=== PATIENT | male | born 1945 | race Hispanic/Latino ===

== ENCOUNTER 2016-10-16 10:53 | Emergency (ER) | payer MEDICARE, OTHER ==
[~2016-10-16] VITALS: Ht 162.6 cm; Wt 104.5 kg
[~2016-10-16 10:53] MED LIST: CLIN60LO2 TP; CLOP75TA3 PO; CYCL5TAB PO; FLUO60SO3 TOPICAL; HYDR-4003 PO; KETO120S3 TP; LISI10TA PO
[2016-10-16 10:56] VITALS: BP 153/80; PULSE 75; RESP 20; O2SAT 98
--- NOTE | 2016-10-16 11:13 | ED.REPORT ---
HPI-General Illness Date of Service Oct 16, 2016 ED Provider: Dr. Chaves 71 year old male with a history of HTN and peripheral artery disease presents to the ED due to worsening redness and itching to his face for the last 1.5 hours. He refilled a prescription for Lisinopril yesterday. He also reports mild throat "tightness" and lip/tongue swelling. Pt denies SOB and dysphagia. He denies any recent medication changes and has not eaten this morning. Diesel Motor Mechanic: Nova Nursing Notes Stated Complaint: ALLERGIC REACTION Chief Complaint: Allergic Reaction Nursing Notes Reviewed: Yes Allergies: Uncoded Allergies: BANDAIDS (Allergy, Mild, RASH, 05/20/16) Scheduled Clindamycin Phosphate (Clindamycin Phosphate Topical) 60 Ml Lotion 1 APPLIC TP DAILY Clopidogrel Bisulfate (Plavix) 75 Mg Tablet 75 MG PO DAILY Lisinopril (Lisinopril) 10 Mg Tablet 10 MG PO DAILY Metoprolol Succinate ER (Metoprolol Succinate ER) 25 Mg Tab.er.24h 25 MG PO DAILY Scheduled PRN Cyclobenzaprine (Cyclobenzaprine) 5 Mg Tablet 5 MG PO TID PRN PRN Spasm Hydrocodone-Acetaminophen 5-325 mg (Hydrocodone-Acetaminophen 5-325 mg) 1 Each Tablet 1 TABLET PO Q4H PRN PRN For Pain Miscellaneous Medications Fluocinonide 0.05% Solution (Fluocinonide 0.05% Solution) 60 Ml Solution 1 APPLIC TOPICAL Ketoconazole (Ketoconazole) 120 Ml Shampoo 120 ML TP General Time Seen by MD: 11:12 Chief Complaint Allergic reaction Hx Obtained From: Patient Arrived By: Walk-in Sudden in Onset?: Yes Onset Occurred: 1 - 4 hours ago Symptom Duration: Since onset Location: : Arm left: Arm right: Back: Chest: Face Quality: Itching Severity: Current: Mild Associated with: Denies: Shortness of breath, Vomiting Pertinent Negative: Relieved by nothing Past Medical History Past Medical History PAST MEDICAL HISTORY: Significant for hypertension, remote history hepatitis, TIA. Elevated cholesterol. Chronic back and neck pain. Past Surgical History PAST SURGICAL HISTORY: Includes bilateral inguinal hernias, appendectomy, cholecystectomy, sinus surgery and the left knee scope. Smoking History Former Smoker Social History Alcohol Use: Denies alcohol use Drug Use: Denies drug use Review of Systems Full Review of Systems Constitutional: Denies: Chills, Fever Ears / Nose / Throat: Reports: Tongue swelling (lip swelling) Respiratory: Denies: Non-productive cough, Shortness of breath Cardiovascular: Denies: Chest pain, Palpitations GI: Denies: Abdominal pain, Dysphagia, Nausea, Vomiting Skin: Reports Itching, Reports Rash, Reports Swelling Allergy / Immune: Reports: Allergic reaction, Itching Neurologic: Denies: Change LOC, Headache Complete sys rev & neg: except as marked. Physical Exam Vital Signs Vital Signs Date Time Temp Pulse Resp B/P Pulse Ox O2 Delivery O2 Flow Rate FiO2 10/16/16 14:29 62 18 123/54 98 Room Air 10/16/16 13:38 66 16 124/54 97 Room Air 10/16/16 12:30 68 16 138/63 97 Room Air 10/16/16 11:23 36.3 68 133/82 95 Room Air 10/16/16 10:56 36.8 75 20 153/80 98 Room Air Initial VS: Reviewed General/Constitutional: Well-developed, Well-nourished Head / Eyes: Atraumatic, Normocephalic, PERRL ENT: Conjunctiva normal, No scleral icterus Neck: Full range of motion Abdomen / GI: Soft, Non-tender Extremities: Vascular intact, Neuro intact, No swelling, No tenderness Neurologic: Alert, Oriented, Nonfocal Psychiatric: Mood/affect normal, Behavior normal, Normal thought content ENT: Airway patent No tongue swelling. Minor amount of swelling to lower lip Respiratory / Chest: Breath sounds NL, Breath sounds = bilat, No respiratory distress, No rales, No rhonchi, No wheezing Cardiovascular: Heart rate NL, Regular rhythm, Heart sounds NL, Cap refill not delayed, Peripheral circulation NL Skin: Warm, Dry Erythema to upper chest, upper back, part of upper arms, neck and face. Erythema to bilat ears. Interpretation & Diagnostics Lab Results Interpretation Result Diagram: 10/16/16 1115 10/16/16 1115 Test 10/16/16 11:15 White Blood Count 7.9th/mm3 (3.8-10.1) Red Blood Count 5.11mil/mm3 (4.40-5.80) Hemoglobin 15.8g/dL (13.8-17.2) Hematocrit 46.5% (41.0-50.0) Mean Corpuscular Volume 91.0fL (81-100) Mean Corpuscular Hemoglobin 30.9pg (27.0-35.0) Mean Corpuscular Hemoglobin Concent 34.0% (32.0-37.0) Red Cell Distribution Width 13.9% (12.3-15.4) Platelet Count 260bil/L (150-400) Neutrophils (%) (Auto) 40.5% (40-74) Lymphocytes (%) (Auto) 43.2% (14-46) Monocytes (%) (Auto) 10.4% (4-12) Eosinophils (%) (Auto) 5.2% (0-5) Basophils (%) (Auto) 0.4% (0-3) Prothrombin Time 10.5sec (8.1-12.5) Prothromb Time International Ratio 0.98ratio Sodium Level 138mEq/L (134-144) Potassium Level 4.7mEq/L (3.5-5.2) Chloride Level 104mEq/L (97-108) Carbon Dioxide Level 22mmol/L (18-29) Blood Urea Nitrogen 19mg/dL (8-27) Creatinine 0.89mg/dL (0.76-1.27) Estimat Glomerular Filtration Rate 90mL/min (>59) Glucose Level 108mg/dL (60-99) Calcium Level 8.8mg/dL (8.5-10.1) Total Bilirubin 0.3mg/dL (0.0-1.2) Aspartate Amino Transf (AST/SGOT) 19U/L (0-50) Alanine Aminotransferase (ALT/SGPT) 16U/L (0-44) Alkaline Phosphatase 97U/L (25-160) Total Protein 7.3g/dL (6.4-8.4) Albumin 3.9g/dL (3.4-5.0) General Lab Results Interp 1: Labs reviewed Re-Eval/Medical Decision Med Decision/Clinical Course Called to [facility] pharmacy regarding his lisinopril prescription. He is on 10 mg he did strip picker a new prescription yesterday this reaction is after taking the first pill out of this new bottle. Pharmacist confirms no new backend python developer no change to the medicines this is the same physical pill he would have gotten with all previous prescriptions At this point my best guess at the cause for his acute reaction is in fact the lisinopril. We will ask him to stop this Time of Eval: 14:24 Re-Evaluation/Progress Note: The area of erythema has resolved. Lip swelling resolved. Discussed change in medication and plan for d/c and f/u. All questions addressed. Consultation : Referral / Consult Name: Vanesa Munoz MD Consulted With: Primary care physician Call Returned at: 11:30 Note: Returned call for Dr. Butt. Discussed medication changes. Counseled Regarding: Diagnosis, Lab results, Need for follow-up, When/why to return to ED Discharge & Departure Primary Impression: Allergic reaction caused by a drug Disposition: Home Discharge Condition All VS Reviewed: Yes Condition: Improved Additional Instructions: Stop taking your Lisinopril as I believe that this is what caused your reaction. I did call the pharmacy and they said the new prescription you got yesterday is the same backend python developer, same color and dose as you have had previously. I think it is best to not take any changes and want you to stop the lisinopril. I want to replace it with metoprolol 25mg daily, you can begin this tomorrow. A prescription has been electronically sent to [facility] for you. I have spoken with Dr Munoz, Dr Butt's partner to let her know my recommendations. Please schedule an apt next week with Dr Butt to make sure your blood pressure is OK and you are tolerating the medication. Return if you are getting worse. Good luck! Referrals: Karlie Butt MD (PCP) Scribe Attestation Portions of this note were transcribed by Rosaura Sadler. I, (Dr. Chaves) personally performed the history, physical exam and medical decision-making; I reviewed and confirmed the accuracy of the information in the transcribed note. Signed by: Rosaura Sadler. 10/16/2016, 1509 copies to: Karlie Butt MD; Ismael Bhatt MD, Shawna L MD Oct 16, 2016 11:13 Rosaura Sadler Oct 16, 2016 11:19
[2016-10-16 11:23] VITALS: BP 133/82; PULSE 68; O2SAT 95
[2016-10-16 11:29] LABS: BASOPHILS % (AUTO) 0.4 % (0-3); EOSINOPHILS % (AUTO) 5.2 % (0-5); MONOCYTES % (AUTO) 10.4 % (4-12); Mean Corpuscular Hemoglobin 30.9 pg (27.0-35.0); NEUTROPHILS % (AUTO) 40.5 % (40-74); Platelet Count 260 bil/L (150-400)
[2016-10-16 11:40] LABS: INR 0.98 ratio
[2016-10-16 12:30] VITALS: BP 138/63; PULSE 68; RESP 16; O2SAT 97
[2016-10-16] MEDS ORDERED: METO25TA99 PO (12:37)
[2016-10-16 13:38] VITALS: BP 124/54; PULSE 66; RESP 16; O2SAT 97
[2016-10-16 14:29] VITALS: BP 123/54; PULSE 62; RESP 18; O2SAT 98
[2016-10-17] MEDS ORDERED: PRE20 PO (17:40)
== END 2016-10-16 14:30 | disposition home or self-care (01) ==
LOC: SED 10:53
DX: L29.9 Pruritus, unspecified (principal); L53.9 Erythematous condition, unspecified; T46.4X5A Adverse effect of angiotensin-converting-enzyme inhibitors, initial encounter; X58.XXXA Exposure to other specified factors, initial encounter; Y92.9 Unspecified place or not applicable; Y93.9 Activity, unspecified; Y99.9 Unspecified external cause status; I10 Essential (primary) hypertension; E78.00 Pure hypercholesterolemia, unspecified; I73.9 Peripheral vascular disease, unspecified; Z86.73 Personal history of transient ischemic attack (TIA), and cerebral infarction without residual deficits; Z87.891 Personal history of nicotine dependence
CPT/HCPCS: 36415; 80053; 85025; 85610; 96374; 99284; J1200

== ENCOUNTER 2016-10-17 15:01 | Emergency (ER) | payer MEDICARE, OTHER ==
[~2016-10-17] VITALS: Ht 162.6 cm; Wt 104.5 kg
[~2016-10-17 15:01] MED LIST changes: +METO25TA99 PO
[2016-10-17 15:03] VITALS: BP 172/82; PULSE 76; RESP 16; O2SAT 98
--- NOTE | 2016-10-17 15:23 | ED.REPORT ---
HPI-Allergic Reaction Date of Service Oct 17, 2016 ED Provider: Odilon Torres MD Pt is a 71 y.o. male who presents to the ED with an allergic reaction c/o throat , neck, and mouth itchiness onset 1 hour prior to arrival. Pt states that he was seen in the ED yesterday for similar sx and was administered Benadryl, it was determined that his sx may be related to his Lisinopril. He returns today as his symptoms have reoccurred and he claims they have worsened.Pt reports associated rash to his neck and chest, 'raspy' voice, and sensation of tongue swelling. He denies SOB and dysphagia. Pt also denies any new medications and states that he has not taken anymore of his Lisinopril. Nursing Notes Stated Complaint: ALLERGIC REACTION Chief Complaint: Allergic Reaction Nursing Notes Reviewed: Yes Allergies: Uncoded Allergies: BANDAIDS (Allergy, Mild, RASH, 05/20/16) Scheduled Clindamycin Phosphate (Clindamycin Phosphate Topical) 60 Ml Lotion 1 APPLIC TP DAILY Clopidogrel Bisulfate (Plavix) 75 Mg Tablet 75 MG PO DAILY Lisinopril (Lisinopril) 10 Mg Tablet 10 MG PO DAILY Metoprolol Succinate ER (Metoprolol Succinate ER) 25 Mg Tab.er.24h 25 MG PO DAILY Prednisone (PredniSONE) 20 Mg Tablet 40 MG PO DAILY Scheduled PRN Cyclobenzaprine (Cyclobenzaprine) 5 Mg Tablet 5 MG PO TID PRN PRN Spasm Hydrocodone-Acetaminophen 5-325 mg (Hydrocodone-Acetaminophen 5-325 mg) 1 Each Tablet 1 TABLET PO Q4H PRN PRN For Pain Miscellaneous Medications Fluocinonide 0.05% Solution (Fluocinonide 0.05% Solution) 60 Ml Solution 1 APPLIC TOPICAL Ketoconazole (Ketoconazole) 120 Ml Shampoo 120 ML TP General Time Seen by MD: 15:14 Chief Complaint Allergic reaction Hx Obtained From: Patient Arrived By: Walk-in Onset Occurred: 1 - 4 hours ago Symptom Duration: Since onset Location: : Chest: Neck Quality: Itching Recent Healthcare: Recent doctor visit Similar Sx Previous: Yes Past Medical History Past Medical History PAST MEDICAL HISTORY: Significant for hypertension, remote history hepatitis, TIA. Elevated cholesterol. Chronic back and neck pain. Past Surgical History PAST SURGICAL HISTORY: Includes bilateral inguinal hernias, appendectomy, cholecystectomy, sinus surgery and the left knee scope. Smoking History Former Smoker Social History Alcohol Use: Denies alcohol use Drug Use: Denies drug use Ambulatory Status Independent Review of Systems Ears / Nose / Throat: Reports: Tongue swelling (sensation of) Skin: Reports Rash (Chest and neck) Allergy / Immune: Reports: Allergic reaction, Itching Complete sys rev & neg: except as marked. Physical Exam Initial Vital Signs Vital Signs (First) Date Time Temp Pulse Resp B/P Pulse Ox O2 Delivery O2 Flow Rate FiO2 10/17/16 15:03 36.6 76 16 172/82 98 Room Air Initial VS: Reviewed Head / Eyes: Atraumatic, Normocephalic Abdomen / GI: No distention Extremities: Vascular intact, Neuro intact Neurologic: Alert, Oriented, Nonfocal Psychiatric: Mood/affect normal, Behavior normal, Normal thought content General/Constitutional: Awake, Alert, No acute distress, Well appearing, Well developed, Well hydrated, Well nourished, Not toxic appearing Respiratory / Chest: Atraumatic, Breath sounds NL, Breath sounds = bilat, No respiratory distress, No rales, No rhonchi, No wheezing, No retractions, No stridor Cardiovascular: Heart rate NL, Regular rhythm, Heart sounds NL, No gallop, No murmurs, No rubs, Peripheral circulation NL Skin: Atraumatic, Warm, Dry, Intact Rash / Lesion Location: Positive: Chest (Anterior chest wall), Neck Rash / Lesion Pattern: Positive: Urticarial (Mild) ENT: Atraumatic, Airway patent, Pharynx NL, No pooling of secretions, No facial swelling Mouth: Positive: Tongue abnormal (Right side of tongue mildly edematous), Negative: Lip swelling present Interpretation & Diagnostics Lab Results Interpretation Test 10/17/16 15:30 Hold Purple Top Tube Received (Received) Hold Blue Top Tube Received (Received) Hold [place] Top Tube Received (Received) Re-Eval/Medical Decision Med Decision/Clinical Course In summary, the patient is a 71-year-old male seen here and evaluated in this emergency department yesterday complaining of possible allergic reaction with swelling of his tongue/lips and itching. This was thought possibly very mild angioedema and he is told to stop his KAMERON inhibitor and use Benadryl for itching. He presents back to the emergency department today complaining that he is developed worsening itching and that he has itching in his lips and swelling of the right side of his tongue. Upon arrival he is afebrile, hemogram stable and in no apparent distress. He has no apparent swelling of his lips. He has very subtle swelling of the right side of his tongue. He also has mild urticaria about his anterior chest. His airway is widely patent. The patient was treated here with IV fluids Benadryl Methylprednisolone Famotidine The presentation today is somewhat atypical. The swelling is extremely subtle and I am unconvinced angioedema though this remains my primary concern. This may also reflect a mild/early anaphylactic type reaction. Therefore the patient was aggressively treated with the above medications and reported resolution of his symptoms. Repeat examination revealed no progressive swelling of his face lips or tongue. The patient did not desire any further stay in the emergency department or admission for observation. He preferred to go home and return should his symptoms worsen or change. I explained to him the risk of possible evolving angioedema and the importance of returning immediately if he develops any recurrent or progressive symptoms. He will continue to hold his lisinopril and follow up with his primary care physician. Follow-up and return precautions were reviewed in detail and he was discharged in stable condition. Of note, I was informed by the patient's nurse that he actually administered 0.1 mg the patient's 0.3 mg dose of intramuscular epinephrine via the intravenous route. The patient had transient tachycardia related to this though no other adverse reactions he is monitored here for over 2 hours in the emergency department during which time he remained stable without any progressive symptoms. Source of Hx: Old records Re-Evaluation/Progress : Time of Eval: 17:50 Re-Evaluation/Progress Note: Pt rechecked. Pt states he is feeling improved. Discussed plan to discharge, pt understands and agrees with plan. Counseled Regarding: Diagnosis, Lab results, Need for follow-up, When/why to return to ED Discharge & Departure Primary Impression: Allergic reaction caused by a drug Additional Impressions: Angioedema Encounter type: initial encounter Qualified Code: T78.3XXA - Angioneurotic edema, initial encounter Urticaria Itching Disposition: Home Discharge Condition All VS Reviewed: Yes Condition: Stable Additional Instructions: Thank you for seeking care at emergency room. It is difficult for us to make definitive diagnoses in the ED but we believe that you are experiencing an allergic reaction or extremely mild angioedema. Our primary goal today in the ED was to evaluate you for any life-threatening conditions. Your evaluation was reassuring. That being said angioedema can progress to become life-threatening and if you develop any worsening swelling or failure of symptoms to continue improving you should come back to the emergency room. You will be discharged with a prescription for 4 days of prednisone, please take this in addition to Benadryl. You should follow-up with your primary doctor in the next week. Continued to hold your lisinopril. You should return to the ED immediately if you develop hives, worsening swelling , difficulty swallowing, difficulty breathing, swelling of your lips/face, fevers, vomiting, cough, shortness of breath, chest pain, lightheadedness, weakness or any other concerning signs or symptoms. Thank you for letting us partake in your care today. Referrals: Karlie Butt MD (PCP) Crit Care Except Billable Proc Time Spent: 30-74 minutes Services Performed: Patient management by me, Time spent at bedside, Reviewing test results, Reviewing imaging, Discussing patient care, Documentation in record, Time with fam/surrogate Scribe Attestation Portions of this note were transcribed by Kalen Soni. I, Dr. Torres personally performed the history, physical exam and medical decision-making; I reviewed and confirmed the accuracy of the information in the transcribed note. Signed by: Dillon Conti, 10/17/2016 and 0012. copies to: Karlie Butt MD, Beck O MD Oct 17, 2016 15:23 KALEN SONI Oct 17, 2016 15:54
[2016-10-17] MEDS ORDERED: 0.9% Sodium Chloride 1,000 ML IV STA (15:24)
[2016-10-17] MEDS ORDERED: Famotidine Inj 20 MG in IV Premix 1 EACH IV ONE (15:25)
[2016-10-17] MEDS ORDERED: MethylprednisoLONE Sodium Succinate 62.5 mg/mL 2 mL Inj IVPUSH ONE (15:25)
[2016-10-17 15:49] VITALS: BP 154/84; PULSE 92; RESP 18; O2SAT 100
[2016-10-17] MEDS ORDERED: PRE20 PO (17:40)
[2016-10-17 17:58] VITALS: BP 148/58; PULSE 83
== END 2016-10-17 17:59 | disposition home or self-care (01) ==
LOC: SED 15:01
DX: L50.0 Allergic urticaria (principal); L29.9 Pruritus, unspecified; T46.4X5A Adverse effect of angiotensin-converting-enzyme inhibitors, initial encounter; X58.XXXA Exposure to other specified factors, initial encounter; Y92.9 Unspecified place or not applicable; Y93.9 Activity, unspecified; Y99.9 Unspecified external cause status; I10 Essential (primary) hypertension; E78.5 Hyperlipidemia, unspecified; Z86.73 Personal history of transient ischemic attack (TIA), and cerebral infarction without residual deficits; Z87.891 Personal history of nicotine dependence; Z79.02 Long term (current) use of antithrombotics/antiplatelets
CPT/HCPCS: 96361; 96372; 96374; 96375; 99284; J0171; J1200; J2930; J3490; J7030

== ENCOUNTER 2017-06-14 19:29 | Emergency (ER) | payer MEDICARE, OTHER ==
[~2017-06-14] VITALS: Ht 162.6 cm; Wt 106.8 kg
[~2017-06-14 19:29] MED LIST changes: +METO-386 PO; -METO25TA99 PO; +PRE20 PO
[2017-06-14 19:33] VITALS: BP 203/85; PULSE 73; RESP 20; O2SAT 98
--- NOTE | 2017-06-14 19:38 | ED.REPORT ---
HPI-Trauma Minor / Fall Date of Service Jun 14, 2017 ED Provider: Orestes Munguia DO Pt is a 72 year old male with a history of HTN, chronic back pain, and chronic neck pain who presents to the ED complaining of thoraco-lumbar back pain after a ground level fall prior to arrival. He denies head pain, neck pain, LOC, and headache. Pt reports that he was sitting in his chair when the chair fell backwards, causing him to hit his head on a stump. The pt took 1000 mg of Tylenol prior to arrival without relief. Per pt, he is currently taking blood thinners (Plavix). Nursing Notes Stated Complaint: BACK PAIN AFTER FALL Chief Complaint: Head, Face, Neck Trauma Nursing Notes Reviewed: Yes Allergies: Uncoded Allergies: BANDAIDS (Allergy, Mild, RASH, 05/20/16) Scheduled Clindamycin Phosphate (Clindamycin Phosphate Topical) 60 Ml Lotion 1 APPLIC TP DAILY Clopidogrel Bisulfate (Plavix) 75 Mg Tablet 75 MG PO DAILY Lisinopril (Lisinopril) 10 Mg Tablet 10 MG PO DAILY Metoprolol Succinate ER (Metoprolol Succinate ER) 25 Mg Tab.er.24h 25 MG PO DAILY Prednisone (PredniSONE) 20 Mg Tablet 40 MG PO DAILY Scheduled PRN Cyclobenzaprine (Cyclobenzaprine) 5 Mg Tablet 5 MG PO TID PRN PRN Spasm Hydrocodone-Acetaminophen 5-325 mg (Hydrocodone-Acetaminophen 5-325 mg) 1 Each Tablet 1 TABLET PO Q4H PRN PRN For Pain Miscellaneous Medications Fluocinonide 0.05% Solution (Fluocinonide 0.05% Solution) 60 Ml Solution 1 APPLIC TOPICAL Ketoconazole (Ketoconazole) 120 Ml Shampoo 120 ML TP General Time Seen by MD: 19:38 Chief Complaint Fall Hx Obtained From: Patient Arrived By: Walk-in Onset Occurred: Just prior to arrival Symptom Duration: Since onset Caused by: Accidental Location: Back Quality: Painful Severity: Current: Moderate Severity: Maximum: Moderate Recent Healthcare: No recent doctor visit, No recent hospitalization Similar Sx Previous: No Past Medical History Past Medical History Remote history hepatitis Chronic back andneck pain. Reports: Hyperlipidemia, Hypertension, Transient ischemic attack Past Surgical History Sinus surgery Left knee scope. Reports: Appendectomy, Cholecystectomy, Inguinal hernia repair (bilateral) Smoking History Former Smoker Social History Alcohol Use: Denies alcohol use Drug Use: Denies drug use Ambulatory Status Independent Review of Systems Denies head pain Musculoskeletal: Reports: Back pain, Denies: Neck pain Neurologic: Denies: Change LOC, Headache Complete sys rev & neg: except as marked. Physical Exam Initial Vital Signs Vital Signs (First) Date Time Temp Pulse Resp B/P Pulse Ox O2 Delivery O2 Flow Rate FiO2 06/14/17 19:33 36.8 73 20 203/85 98 Room Air Initial VS: Reviewed Respiratory: Breath sounds normal, Clear to auscultation, No respiratory distress Cardiovascular: Regular rate & rhythm, Heart sounds normal, Intact distal pulses Abdomen / GI: Soft, Non-tender Extremities: Vascular intact, Neuro intact Skin: Warm, Dry, No cyanosis Neurologic: Alert, Oriented, Nonfocal Psychiatric: Mood/affect normal, Behavior normal General/Constitutional: Awake, Alert Neck: Full range of motion, Non-tender HEAD: No signs of trauma BACK: Mild thoraco-lumbar tenderness Interpretation & Diagnostics X-Ray Interpretation Xray Interpretation: IMPRESSION: 1. No fracture or subluxation. 2. Mild multilevel retrolisthesis. 3. Multilevel degenerative changes most prominent at L5-S1. Dictated by: Silviano Walters M.D. on 06/14/2017 at 20:22 Study Performed: 2 or 3 view, Lumbar spine Interpretation / Wet Read by: Interpret - Radiologist Xray Interpretation: IMPRESSION: 1. No fracture or subluxation. Dictated by: Silviano Walters M.D. on 06/14/2017 at 20:24 Study Performed: Thoracic Interpretation / Wet Read by: Interpret - Radiologist Re-Eval/Medical Decision Med Decision/Clinical Course Documented criteria for CT imaging and head and neck injuries followed. CT not indicated. Loss of consciousness. Minimal trauma to the back of his head. No anticoagulant use. No signs of a concussion or skull fracture. Cervical spine was cleared clinically. Nexus criteria was applied. Source of Hx: Old records Re-Evaluation/Progress : Time of Eval: 20:35 Re-Evaluation/Progress Note: Pt rechecked. Informed pt of plan for discharge. Pt understands and agrees with plan for discharge. F/U instructions and RTER warnings given. All questions addressed. Counseled Regarding: Diagnosis, Need for follow-up, When/why to return to ED Discharge & Departure Impression: Primary Impression: Contusion of thoracic wall Encounter type: initial encounter Contusion of thoracic wall detail: back wall of thorax Laterality: right Qualified Code: S20.221A - Contusion of right back wall of thorax, initial encounter Additional Impression: Lumbar contusion Encounter type: initial encounter Qualified Code: S30.0XXA - Contusion of lower back and pelvis, initial encounter Disposition: Home Discharge Condition All VS Reviewed: Yes Condition: Stable Patient Instructions: Contusion in Adults (GEN) Additional Instructions: The x-rays did not show evidence of fracture. I suspect that you have bruised your back and the bones of your spine. You may take 1-2 [place] every 6 hours as needed for severe pain. Do not drive or drink alcohol or consume acetaminophen for taking the [place]. Set up a follow up appointment with your primary care physician for next week. If you have a headache or any neck pain or any new or worrisome symptoms come right back to the emergency department. Referrals: Karlie Butt MD (PCP) Scribe Attestation Portions of this note were transcribed by Bell Caldwell. I, Dr. Munguia personally performed the history, physical exam and medical decision-making; I reviewed and confirmed the accuracy of the information in the transcribed note. Signed by : Dillon Mark, 06/14/17. copies to: Karlie Butt MD, Todd P DO Jun 14, 2017 19:38 Bell Puldio Jun 14, 2017 19:49
[2017-06-14] MEDS ORDERED: _HYDROcodone/APAP 5-325 mg Tablet PO PRN (20:00)
--- NOTE | 2017-06-14 20:25 | DRSVH ---
PROCEDURE: X-RAY LUMBAR SPINE, 2 OR 3 VIEW INDICATIONS: fall, back pain TECHNIQUE: 3 views of the lumbar spine were acquired. COMPARISON: None. FINDINGS: Bones: 5 [id number] vertebrae are present. There is mild retrolisthesis at L1-L2, L2-L3, and L3 -L4. No vertebral body compression fractures. No suspicious bony lesions. There is multilevel disc space narrowing including [id number] disc space narrowing at L5-S1. Multilevel facet arthropa thy is also present in the lower lumbar spine. Soft tissues: Overlying bowel gas pattern is normal. No suspicious soft tissue calcifications. IMPRESSION: 1. No fracture or subluxation. 2. Mild multilevel retrolisthesis. 3. Multilevel degenerative changes most prominent at L5-S1. Dictated by: Silviano Walters M.D. on 06/14/2017 at 20:22 Approved by: Silviano Walters M.D. on 06/14/2017 at 20:23
--- NOTE | 2017-06-14 20:26 | DRSVH ---
PROCEDURE: X-RAY THORACIC SPINE, 2 VIEWS INDICATIONS: fall, back pain TECHNIQUE: 4 views of the thoracic spine were acquired. COMPARISON: None. FINDINGS: Bones: No definite fractures or dislocations. There is a minimal rightward curvature of the thoraci c spine centered at T8 No suspicious bony lesions. 12 pairs of ribs are noted, and appear intact whe re visualized. Soft tissues: No paravertebral stripe thickening. IMPRESSION: 1. No fracture or subluxation. Dictated by: Silviano Walters M.D. on 06/14/2017 at 20:24 Approved by: Silviano Walters M.D. on 06/14/2017 at 20:24
[2017-06-14 20:56] VITALS: BP 173/84; PULSE 68; RESP 16; O2SAT 96
== END 2017-06-14 20:33 | disposition home or self-care (01) ==
LOC: SED 19:29
DX: S20.221A Contusion of right back wall of thorax, initial encounter (principal); S30.0XXA Contusion of lower back and pelvis, initial encounter; W01.198A Fall on same level from slipping, tripping and stumbling with subsequent striking against other object, initial encounter; Y93.89 Activity, other specified; Y92.89 Other specified places as the place of occurrence of the external cause; Y99.8 Other external cause status; I10 Essential (primary) hypertension; E78.5 Hyperlipidemia, unspecified; Z87.891 Personal history of nicotine dependence; Z86.73 Personal history of transient ischemic attack (TIA), and cerebral infarction without residual deficits